=== PATIENT | female | born 1960 | race Caucasian/White ===

== ENCOUNTER 2022-05-30 11:38 | Outpatient (REF) | payer OTHER, SELFPAY ==
[2022-05-30 14:07] LABS: Estimated Average Glucose 186 mg/dL; Hemoglobin A1c % 8.1 %
[2022-05-30 14:32] LABS: Alanine Aminotransferase 19 U/L (0-31); Albumin Level 3.9 g/dL (3.5-5.0); Alkaline Phosphatase 41 U/L (39-117); Aspartate Amino Transferase 18 U/L (5-31); Bilirubin Direct 0.3 mg/dL (0.0-0.5); Blood Urea Nitrogen 12 mg/dL (9-16); Cholesterol 134 mg/dL; Estimated Glomerular Filt Rate > 60; Glucose Random 211 mg/dL (60-115); HDL Cholesterol 35 mg/dL; LDL Cholesterol Calculated 74 mg/dl; Total Protein 6.1 g/dL (6.5-8.0); Triglycerides 125 mg/dL; Vitamin D 25-OH Total 10.5 ng/mL (>30)
[2022-05-30 14:52] LABS: Anion Gap 13 (12-20); Carbon Dioxide 30 mmol/L (22-29); Chloride 103 mmol/L (96-108); Potassium 4.2 mmol/L (3.3-5.1); Sodium 142 mmol/L (135-145)
== END 2022-05-30 11:39 | disposition home or self-care (01) ==
LOC: HO.HMGCLDS 11:38
PROVIDERS: Visit Provider Internal Medicine Cardiovascular Disease
DX: E11.65 Type 2 diabetes mellitus with hyperglycemia (principal); E78.2 Mixed hyperlipidemia; E55.9 Vitamin D deficiency, unspecified; I10 Essential (primary) hypertension
CPT/HCPCS: 36415; 80051; 80061; 80076; 82306; 82310; 82565; 82947; 83036; 84520

== ENCOUNTER 2022-11-11 09:43 | Outpatient (REF) | payer OTHER, SELFPAY ==
[2022-11-11 11:20] LABS: MANUAL DIFF FLAG NO
[2022-11-11 11:34] LABS: Basophils Absolute Auto 0.1 X10*3/uL (0.0-0.2); Basophils Percent Auto 0.8 % (0-2); Eosinophils Absolute Auto 0.2 X10*3/uL (0.0-0.4); Eosinophils Percent Auto 3.1 % (0-4); Hematocrit 45.5 % (37.0-47.0); Hemoglobin 15.1 g/dl (12.0-16.0); Imm Gran Abs Auto 0.05 X10*3/uL (0.00-0.03); Imm Gran Pct Auto 0.8 % (0.0-0.4); Lymphocytes Absolute Auto 2.3 X10*3/uL (1.2-4.9); Lymphocytes Percent Auto 37.1 % (20-40); Mean Corpuscular HGB Conc 33.2 g/dl (31.0-35.0); Mean Corpuscular Hemoglobin 28.1 pg (27.0-33.0); Mean Corpuscular Volume 84.7 fL (80.0-98.0); Mean Platelet Volume 10.7 fL (9.4-12.3); Monocytes Absolute Auto 0.5 X10*3/uL (0.1-1.2); Monocytes Percent Auto 8.1 % (2-11); Neutrophils Percent Auto 50.1 % (45-73); Platelet Count 231 X10*3/uL (160-400); Red Blood Count 5.37 X10*6/uL (4.20-5.50); Red Cell Distribution Width 13.5 % (11.0-16.0); White Blood Count 6.1 X10*3/uL (4.8-10.8)
[2022-11-11 11:58] LABS: Alanine Aminotransferase 16 U/L (0-31); Alkaline Phosphatase 33 U/L (39-117); Anion Gap 12 (12-20); Aspartate Amino Transferase 19 U/L (5-31); Bilirubin Total 1.1 mg/dL (0.0-1.0); Blood Urea Nitrogen 23 mg/dL (9-16); Calcium 9.5 mg/dL (8.4-10.2); Carbon Dioxide 30 mmol/L (22-29); Chloride 103 mmol/L (96-108); Cholesterol 299 mg/dL; Estimated Glomerular Filt Rate > 60; Glucose Random 205 mg/dL (60-115); HDL Cholesterol 37 mg/dL; LDL Cholesterol Calculated 206 mg/dl; Potassium 4.5 mmol/L (3.3-5.1); Sodium 140 mmol/L (135-145); Total Protein 6.5 g/dL (6.5-8.0); Triglycerides 280 mg/dL
[2022-11-11 12:18] LABS: Free T4 (Free Thyroxine) 1.06 ng/dL (0.71-1.85); Thyroid Stimulating Hormone 0.58 uIU/mL (0.32-4.0)
== END 2022-11-11 09:44 | disposition home or self-care (01) ==
LOC: HO.HMGCLDS 09:43
PROVIDERS: PCP Internal Medicine Cardiovascular Disease; Visit Provider Internal Medicine Cardiovascular Disease
DX: I10 Essential (primary) hypertension (principal); E78.2 Mixed hyperlipidemia
CPT/HCPCS: 36415; 80053; 80061; 84439; 84443; 85025

== ENCOUNTER 2023-03-27 13:52 | Outpatient (AMB) | payer OTHER, SELFPAY ==
--- NOTE | 2023-03-27 14:07 | MHC.OFFWIV ---
Intake Vital Signs 03/27/23 14:09 Weight 306 lb BP 110/74 Blood Pressure Location Rt brachial Position Sitting Pulse 82 Pulse Source Pulse Oximeter Pulse Oximetry (%) 94 Oxygen Delivery Method Room Air Intake Visit Reasons: EP Cough 2 weeks (masked) Intake Note: Patient here for cold that has been present for about 2 weeks. she has a cough, vomiting and body soreness. Patient Tobacco Use Status: Never used Tobacco Allergies vitamin c Adverse Reaction (Mild, Uncoded 03/27/23 14:10) sores Do you need a note to return to daycare/school/sports/work: No HPI HPI Comments History of Present Illness Details 62-year-old female who presents for cough x2 weeks. Patient states she has been experiencing cough slightly productive the last 2 weeks. She has tried cough medicine [id number] without much relief she endorses some chills but denies fevers. Chest pain or shortness of breath. Does experience some soreness in the ribs from coughing so much. [facility] Medical History (Updated 03/27/23 @ 14:46 by PERLA Eagle) Cough Social History Patient Tobacco Use Status: Never used Tobacco Review of Systems Const All systems reviewed & are unremarkable except as noted in HPI and below Resp Reports cough Physical Exam Vital Signs: Last Vital Signs Pulse 82 03/27/23 14:09 BP 110/74 03/27/23 14:09 Pulse Ox 94 03/27/23 14:09 Oxygen Delivery Method Room Air 03/27/23 14:09 Const General: cooperative, no acute distress and alert Orientation/consciousness: patient oriented x3 Limitations: no limitations HEENT Head: Yes normal to inspection Ears: hearing grossly normal bilaterally and external ears normal General nose exam: Normal external nose present Eyes General: appearance normal, both eyes and all related structures Neck Neck: Yes normal visual inspection Chest Chest palpation & inspection: normal inspection of the chest Resp Other: Faint expiratory wheeze rate remains Effort & Inspection: normal respiratory effort, able to speak in complete sentences and no audible wheezes Cardio Rate: regular rate Rhythm: regular rhythm GI Inspection: Yes normal to inspection Palpation (GI): Soft to palpation and nontender Skin General skin exam: no rashes or lesions noted Neuro General: patient oriented x3 Psych Appearance: grossly normal Mental Status: mental status grossly normal Speech and movement: Normal speech and movement present Affect: normal affect Attitude: cooperative Thought process: Normal thought process present Thought content: Normal thought content present Assessment & Plan Assessment & Plan (1) Cough: Code(s): R05.9 - Cough, unspecified Qualifiers: Cough type: subacute Qualified Code(s): R05.2 - Subacute cough Plan: VSs. Pain within the right lower base. Unclear etiology of patient's cough at this time. Could be bronchitis versus pneumonia versus other viral illness. For prescribe this symptomatic treatment with albuterol prednisone and Tessalon Perles. We should chest x-ray to rule out pneumonia. Discharge instructions, follow up and treatment are discussed with patient in my usual fashion. Alternatives in treatment are also discussed. The patient will return for worsening symptoms or as needed. Advised that any labs/imaging ordered will be followed up on and contact made if further treatment needed. Counseled that patient's condition may require further evaluation and/or treatment. Symptoms of concern for worsening disorder discussed in detail in my customary manner. Patient does verbalize understanding of the plan, there are no apparent barriers to communication. The patient is given the opportunity to ask questions and have them answered to his/her satisfaction Orders: Orders XR chest 2V Today R05.9 - Cough, unspecified Medications: New benzonatate 100 mg PO BID PRN 10 caps 0RF cough albuterol sulfate 90 mcg/actuation 2 puffs inhalation Q6H PRN 6.7 grams 0RF shortness of breath or wheezing prednisone 40 mg (2 x 20 mg) PO DAILY 3 days 6 tabs 0RF Patient Instructions: You were seen and evaluated for your cold-like symptoms. We cannot say for sure at this time examination is reassuring. We believe is likely suffering from a viral URI. Recommend continued symptomatic treatment using saline rinses Tylenol Motrin as needed. You have been prescribed prednisone, albuterol, and Tessalon Perles. You should return to clinic or the emergency department if you experience any new worsening symptoms such as chest pain, shortness of breath, nausea, vomiting, abdominal pain, or any concerning symptoms I mentioned above. Coding Level of Care Code Est Pt Level 3 (84527) Diagnoses Subacute cough R05.2 Cough type: subacute
[2023-03-27 14:09] VITALS: BP 110/74; PULSE 82; O2SAT 94
== END 2023-03-27 14:48 | disposition home or self-care (01) ==
PROVIDERS: PCP Internal Medicine Cardiovascular Disease; Visit Provider Physician Assistant
DX: R05.2 Subacute cough (principal)
CPT/HCPCS: 99213

== ENCOUNTER 2023-03-27 14:44 | Outpatient (REF) | payer OTHER, SELFPAY ==
--- NOTE | ~2023-03-27 | XR_ITS ---
EXAMINATION: XR CHEST CLINICAL INFORMATION: Cough. COMPARISON: None available. TECHNIQUE: 2 views of the chest were obtained. FINDINGS: The cardiomediastinal silhouette is normal. There is no focal lung consolidation or pleural effusion. The bony structures and soft tissues are unremarkable. XR/XR chest 2V IMPRESSION: No active cardiopulmonary disease.
== END 2023-03-27 14:45 | disposition home or self-care (01) ==
LOC: HO.HMGCX 14:44
PROVIDERS: PCP Internal Medicine Cardiovascular Disease; Visit Provider Physician Assistant
DX: R05.9 Cough, unspecified (principal)
CPT/HCPCS: 71046

== ENCOUNTER 2024-06-03 11:18 | Outpatient (AMB) | payer OTHER, SELFPAY ==
--- NOTE | 2024-06-03 12:42 | MHC.OFFWIV ---
Intake Vital Signs 06/03/24 12:45 Height 5 ft 10 in Weight 280 lb BMI 40.2 BP 132/80 Blood Pressure Location Lt brachial Position Sitting Pulse 83 Pulse Source Pulse Oximeter Pulse Oximetry (%) 98 Oxygen Delivery Method Room Air Intake Visit Reasons: EP Cold symptoms Intake Note: Patient here for raspy cough, bilat ear pain, left eye redness and swelling for about 3-4 days. Patient Tobacco Use Status: Never used Tobacco Allergies vitamin c Adverse Reaction (Mild, Uncoded 06/03/24 12:46) sores HPI EP Cold symptoms HPI Details This note is constructed using voice recognition software. While every effort has been made to ensure accuracy, metal loader errors may have been included. The patient is a 64 year old female who presents to the clinic today with cough, congestion, bilateral ear pain for the past 2-3 days, with left facial redness around her eye for the past 1 day. She notes that her 4-year-old grandson was recently positive for rhino virus, and yesterday was sent from his business objects's to the emergency room where he was admitted to the hospital due to his symptoms. She is unsure who develop symptoms 1st he or herself, however they have both been in close proximity since symptom onset. She notes that the difference between his symptoms and hers is that she has ear pain, and some mild sore throat on the left side, and he had no complaints of that. She denies fever, chills, shortness of breath. She has taken Mucinex which has minimally helped her symptoms as well as ibuprofen which she takes daily for back pain. [facility] Medical History (Updated 03/27/23 @ 14:46 by PERLA Eagle) Cough Social History Patient Tobacco Use Status: Never used Tobacco Review of Systems Const All systems reviewed & are unremarkable except as noted in HPI and below Physical Exam Vital Signs: Last Vital Signs Pulse 83 06/03/24 12:45 BP 132/80 06/03/24 12:45 Pulse Ox 98 06/03/24 12:45 Oxygen Delivery Method Room Air 06/03/24 12:45 BMI result Body Mass Index 40.2 Const General: cooperative, healthy appearing, comfortable and no acute distress Orientation/consciousness: patient oriented x3 Limitations: no limitations HEENT Head: Yes normal to inspection Ears: hearing grossly normal bilaterally, external ears normal, TM normal on the right and TM abnormal (On the left) bulging and erythematous General nose exam: Normal external nose present, Normal nares present and No nasal discharge present Face and sinus: Yes normal facial exam and Yes sinuses nontender Mouth: Normal oral and palatal mucosa present and moist mucous membranes Throat: Yes tonsils normal, Yes uvula midline and Yes posterior oropharynx abnormal (Erythema) Eyes General: appearance normal, both eyes and all related structures Neck Neck: Yes normal visual inspection Resp Effort & Inspection: normal respiratory effort, able to speak in complete sentences, Actively coughing, no respiratory distress, not tachypneic, no tripod positioning and no use of accessory muscles Auscultation: clear to auscultation bilaterally Cardio Jugular venous distension: no JVD Rate: regular rate Rhythm: regular rhythm Heart sounds: S1 normal heart sound present, S2 normal heart sound present, no click, no gallops, no murmurs and no rubs Skin General skin exam: no rashes or lesions noted, elasticity normal and turgor normal Neuro General: patient oriented x3 Extrem General: Yes normal to inspection and Yes no clubbing, cyanosis or edema Assessment & Plan Assessment & Plan (1) Otitis media: Code(s): H66.90 - Otitis media, unspecified, unspecified ear Qualifiers: Otitis media type: suppurative Chronicity: acute Laterality: left Recurrence: non-recurrent Spontaneous tympanic membrane rupture: without spontaneous rupture Qualified Code(s): H66.002 - Acute suppurative otitis media without spontaneous rupture of ear drum, left ear Plan: Supportive measures encouraged and reviewed. Antibiotic sent to requested pharmacy, advised patient to take antibiotics until completed and not to stop if feeling better, unless the patient has side effects. Viral swab obtained to rule out Covid, Influenza, and RSV based on symptoms, however discussed likelihood that she has rhinovirus given exposure to her grandson. Advised mask wearing while symptomatic and quarantine per current CDC guidelines. Reviewed at home support methods including hydration, humidification, vix vapor rub, sinus rinse, and otc treatment options. Advised follow up with worsening symptoms such as dyspnea at rest, which would require emergent evaluation. Plan See above for full details and plan. Orders: Orders SARS-CoV2/FLU/RSV Today J06.9 - Acute upper respiratory infection, unspecified Medications: New amoxicillin-pot clavulanate 875-125 mg 1 tab PO BID 10 days 20 tabs 0RF Coding Level of Care Code Est Pt Level 3 (35579) Diagnoses Non-recurrent acute suppurative otitis media of left ear without spontaneous rupture of tympanic membrane H66.002 Otitis media type: suppurative Chronicity: acute Laterality: left Recurrence: non-recurrent Spontaneous tympanic membrane rupture: without spontaneous rupture
[2024-06-03 12:45] VITALS: BP 132/80; PULSE 83; O2SAT 98; BMI 40.2
--- OUTSIDE RECORDS SUMMARY | 2024-06-09 01:53 | XMS_ITS ---
Author Organization [facility] Address [address] [place] [address] Care Team Providers Care Seismograph Operator Helper Name Role Phone Darrel Hedrick MD Primary Care Provider Unavail anurag Rowland MD, Sally Chavez [phone] REASON FOR VISIT Hearing Loss Encounters Encounter Location Date Provider Diagnosis [facility] [address] [place] [address] 10/09/2023 Sally Rowland Plan Of Treatment Next Appt Details Provider Name:Ly smiley, 09/30/2024 01:30:00 PM, [address], [address] [place] [address], [place], [address], Provider Name:Tess davidson, 09/30/2024 02:00:00 PM, [address], [address] [place] [address], [phone], Progress Notes * Trista MACKhDOB: 1 (64 yo F)Acc No.[id number]:10/09/2023 Progress Note Patient:?Bessy MACK Provider:?Sally Rowland MD :1960???Age:63 Y???Sex:Female D ate:10/09/2023 Address:[address] [place] [address] [phone] Pcp:Darrel Hedrick MD Subjective: * Chief Complaints: * ???1. Hearing Loss. * Medical History:? Objective: * Vitals:? * Physical Examination:? Assessment: Plan: * Treatment: * Images: * Electronic signature of Milena Rowland MD, on 06/09/2024 at 01:53 AM EST Sign off status: Pending * Provider:?Sally Rowland MD Date:?04/2024 Generated for Kyra jordan/Gabi/eTransmitting on:?06/09/2024 01:53 AM EST
--- OUTSIDE RECORDS SUMMARY | 2024-06-09 01:54 | XMS_ITS ---
Author Organization [facility] Address [address] [facility] [address] [place] [address] Care Team Providers Care Social Media Specialist Name Role Phone Darrel Hedrick MD Primary Care Provider Unavail able Janett DIAL, Sally Unavailable [phone] Hesham Mora, M.P.H, Jeana Unavailable Allergies Allergen (clinical drug ingredient) Drug/Non Drug Allergy documented on EMR Reaction Allergy Type Onset Date Status ascorbic acid Vitamin C Unknown Drug Allergy Act marjan REASON FOR VISIT hearing loss Social History Tobacco Use: Social History Observation Description Date Details (start date - stop date) Never Smoker NA - NA Smoking: Question Answer Notes Are you a : Never Smoker Alcohol Screen Question Answer Notes Did you have a drink containing alcohol in the p ast year? No Points 0 Interpretation Negative Vital Signs Blood pressure systolic 120 mm Hg 09/25/19 24 Blood pressure diastolic 70 mm Hg 024 Height 67 in 09/25/2023 Weight 300 lbs 09/25/2023 BMI 46.98 kg/m2 09/25/2023 Encounters Encounter Location Date Provider Diagnosis [facility] [address] [facility] [address] [place] [address] 09/25/2023 Jeana Dahl Sensorineural hearin g loss (SNHL) of left ear with restricted hearing of right ear H90.A22 and Mixed hearing loss of right ear H90.71 Assessments Encounter Date Diagnosis (ICD Code) Assessment Notes Treatment Notes Treatment Clinical Notes Section Notes 09/25/2023 Sensorineural hearing loss (SNHL) of left ear with restricted hearing of right ear (ICD-10 - H90.A22) hearing loss, mostly sensorineural in high frequencies, symmetric. see in 1 year with audio 09/25/2023 Mixed hearing loss of right ear (ICD-10 - H90.71) Plan Of Treatment Treatment Notes Assessment Notes Sensorineural hearing loss ( SNHL) of left ear with restricted hearing of right ear hearing loss, mostly sensorineural in high frequencies, symmetric. see in 1 year with audio Next Appt Details Follow Up: 1Y with audio, Re ason: Provider Name:Ly smiley, 09/30/2024 01:30:00 PM, [address] [facility], [place], [address], Provider Name:Tess davidson, 09/30/2024 02:00:00 PM, [address] [facility], [place], [address], Progress Notes * Trista MACKhDOB: 1 (63 yo F)Acc No.[id number]:09/25/2023 Progress Note Patient:?Bessy MACK Provider:?Jeana Dahl M.D.,M.P.H :1960???Age:63 Y???Sex:Female D ate:09/25/2023 Address:[address] [place] [phone] Pcp:Darrel Hedrick MD Subjective: * Chief Complaints: * ???1. Hearing loss. * HPI: ???General:? This is a 63F seen in consultation from Dr. Hedrick for hearing loss ?Patient noting worsening hearing over the past few years. No tinnitus, vertigo. No noise trauma. Notes difficulty when people whisper or in large room. * Medical History:?Medical His tory Verified. * Surgical History:?Denies Pas t Surgical History. * Hospitalization/Major Diagno stic Procedure:?Denies Past Hospitalization. * Family History:?Father: dece ased.?Mother: .?Siblings: alive.?Children: alive.?2 brother(s) - healthy. 1 son(s) - healthy. .? * Social History:?Smoking?Are you a :?Never Smoker.?Alcohol Screen?Did you have a drink containing alcohol in the past year??No,?Points?0,?Interpretation?Negative.? * Medications:?None * Allergies:?Vitamin C. Objective: * Vitals:?BP:120/70mm Hg, Ht: 67 in, Wt:300lbs, BMI:46.98Index. * Examination: ???General: ?General appearance?NAD, well-nourished, well-developed, normal body habitus.?Eyes?Normal lids, EOM intact, no erythema.?Lungs:?Breathing comfortably on room air.?Skin:?warm and dry, no rashes or lesions, no obvious concerning lesions on the head and neck.?Neurologic exam:?A & O x 3, CN II-XII grossly intact intact.?Voice:?Normal, no stridor.?Ears?hearing adequate for normal conversation, normal external ear bilaterally, normal ear canal bilaterally, TM intact bilaterally without erythema or effusions.?Psych?Cooperative with exam, well groomed, no agitation.?Musculoskeletal Neck full range of motion.?Neck:?Soft, supple, no cervical adenopathy, no thyroid masses, trachea midline.?Head and Face:?Normal facial features.? * Physical Examination:?AUDIOLOGY:?Wind Farm Operations Manager:?Audio/tymps completed. Ly Saeed M.A., [facility] .? Assessment: * Assessment: 1.?Sensorineural hearing los s (SNHL) of left ear with restricted hearing of right ear - H90.A22 (Primary)?2.?Mixed hearing loss of right ear - H90.71? Plan: * Treatment: * Procedure Codes:?04763 AUDIO -Comprehensive, 36341 Tympanometry, G9903 Pt scrn tbco id as non user * Follow Up:?1Y with audio * Images: * Sign off status: Completed true * Provider:?Jeana Dahl M.D.,M.P.H Date:?0 09/25/2023 Generated for Printi ng/Fastephanieg/eTransmitting on:?06/09/2024 01:53 AM EST History and Physical Notes * HPI (History of Present Illness) Category Sub-Category Detail Notes Category Not es General This is a 63F seen in consultation from Dr. Hedrick for hearing loss Patient noting worsening hearing over the past few years. No tinnitus, vertigo. No noise trauma. Notes difficulty when people whisper or in large room. Physical Examination Category Sub-Category Detail Notes Section Note s AUDIOLOGY Wind Farm Operations Manager: Audio/tymps comp leted. Ly Saeed M.A., [facility] Examination Category Sub-Category Detail Notes Category Not es General Lungs: Breathing comfortably on jamee m air General appearance NAD, well-nourished, well-developed, normal body habitus Skin: warm and dry, no cristal hes or lesions, no obvious concerning lesions on the head and neck Neurologic exam: A & O x 3, CN II-XII grossly intact intact Voice: Normal, no stridor Ears hearing adequate for normal conversation, normal external ear bilaterally, normal ear canal bilaterally, TM intact bilaterally without erythema or effusions Neck: Soft, supple, no cer vical adenopathy, no thyroid masses, trachea midline Head and Face: Normal facial featur es Eyes Normal lids, EOM int act, no erythema Psych Cooperative with exa m, well groomed, no agitation Musculoskeletal Neck full range of m otion
--- OUTSIDE RECORDS SUMMARY | 2024-06-09 01:54 | XMS_ITS ---
Author Organization [facility] Address [address] [place] [address] Care Team Providers Care Dog Food Dough Mixer Name Role Phone Darrel Hedrick MD Primary Care Provider Unavail able Janett DIAL, Sally Unavailable [phone] Qian West Unavailable REASON FOR VISIT Hearing Loss Encounters Encounter Location Date Provider Diagnosis [facility] [address] [place] [address] 10/09/2023 Qian Anthony Plan Of Treatment Next Appt Details Provider Name:Ly smiley, 09/30/2024 01:30:00 PM, [address], [address] [place] [address], [phone], Provider Name:Tess davidson, 09/30/2024 02:00:00 PM, [address], [address] [facility], [place], [address], Progress Notes * Trista MACKhDOB: (64 yo F)Acc No.[id number]:10/09/2023 Patient:?Enma MACKorah Provider:?STERLING Luu, CC -A :1960???Age:63 Y???Sex:Female D ate:10/09/2023 Address:[facility] [place], [phone] Pcp:Darrel Hedrick MD Subjective: * Chief Complaints: * ???1. Hearing Loss. * Medical History:? Objective: * Vitals:? * Physical Examination:? Assessment: Plan: * Treatment: * Images: * Electronic signature of Sterling Alan CCC-A on 06/09/2024 at 01:53 AM EST Sign off status: Pending * Provider:?STRELING Luu CC -A Date:?10/09/2023 Generated for Printing/Faxing/eTransmitting on:?06/09/2024 01:53 AM EST
--- OUTSIDE RECORDS SUMMARY | 2024-06-09 01:54 | XMS_ITS | Patient Health Record ---
Author Organization [facility] Address [address] [place] [address] Care Team Providers Care Mechanical Equipment Test Engineer Name Role Phone Ryley DIAL, Darrel Primary Care Provider Unavail able Janett DIAL, Sally Unavailable [phone] Ly Saeed Unavailable [phone] Hesham Mora, M.P.HJeana Unavailable Qian West Unavailable Allergies Allergen (clinical drug ingredient) Drug/Non Drug Allergy documented on EMR Reaction Allergy Type Onset Date Status ascorbic acid Vitamin C Unknown Drug Allergy Act marjan Reason For Referral No Information Social History Tobacco Use: Social History Observation Description Date Details (start date - stop date) Never Smoker NA - NA Smoking: Question Answer Notes Are you a : Never Smoker Alcohol Screen Question Answer Notes Did you have a drink containing alcohol in the p ast year? No Points 0 Interpretation Negative Problems Problem Type SNOMED Code ICD Code Onset Dates Problem Status W/U Status Risk Notes Problem Mixed conductive and sensorineural hearing loss of right ear (82280459936182) Mixed hearing loss of right ear (H90.71) Active confirmed Problem Sensorineural hearing loss of left ear (disorder) (9747856952) Sensorineural hearing loss (SNHL) of left ear with restricted hearing of right ear (H90.A22) Active confirmed Vital Signs Blood pressure diastolic 70 mm Hg 09/25/2023 Height 67 in 09/25/2023 Blood pressure systolic 120 mm Hg 09/25/2023 Weight 300 lbs 09/25/2023 BMI 46.98 kg/m2 09/25/2023 Encounters Encounter Location Date Provider Diagnosis [facility] [address] [place] [phone] 09/25/2023 Ly Saeed Mixed hearing loss o f right ear H90.71 and Sensorineural hearing loss (SNHL) of left ear with restricted hearing of right ear H90.A22 [facility] [address] [place] [phone] 09/25/2023 Jeana Du Sensorineural hearin g loss (SNHL) of left ear with restricted hearing of right ear H90.A22 and Mixed hearing loss of right ear H90.71 [facility] [address] [place] [phone] 09/25/2023 Darrel Hedrick Assessments Encounter Date Diagnosis (ICD Code) Assessment Notes Treatment Notes Treatment Clinical Notes Section Notes 09/25/2023 Mixed hearing loss of right ear (ICD-10 - H90.71) 09/25/2023 Sensorineural hearing loss (SNHL) of left ear with restricted hearing of right ear (ICD-10 - H90.A22) 09/25/2023 Mixed hearing loss of right ear (ICD-10 - H90.71) 09/25/2023 Sensorineural hearing loss (SNHL) of left ear with restricted hearing of right ear (ICD-10 - H90.A22) hearing loss, mostly sensorineural in high frequencies, symmetric. see in 1 year with audio Plan Of Treatment Next Appt Details Provider Name:Ly smiley, 09/30/2024 01:30:00 PM, [address], [address] [place] [address], [phone], Provider Name:Tess davidson, 09/30/2024 02:00:00 PM, [address], [address] [place] [address], [phone], Insurance Providers Payer Name Payer Address Payer Phone Subscriber Number Group Number Insured Name Patient Relationship to Insured Coverage Start Date Coverage End Date [facility] Medicare Complete [address] [address] [place] [address] [id number] Bessy Mack Self - patient is the insured
== END 2024-06-03 13:34 | disposition home or self-care (01) ==
PROVIDERS: PCP Internal Medicine Cardiovascular Disease; Visit Provider Registered Nurse
DX: H66.002 Acute suppurative otitis media without spontaneous rupture of ear drum, left ear (principal)

== ENCOUNTER 2024-06-03 11:18 | Outpatient (REF) | payer OTHER, SELFPAY ==
[2024-06-03 18:01] LABS: Influenza A PCR NEGATIVE (Negative); Influenza B PCR NEGATIVE (Negative); Resp Syncy Virus RNA Qual PCR NEGATIVE (Negative); SARS COV2 PCR INHOUSE NEGATIVE (Negative)
== END 2024-06-03 11:19 | disposition home or self-care (01) ==
LOC: HO.LAB 11:18
PROVIDERS: Registered Nurse; PCP Internal Medicine Cardiovascular Disease; Visit Provider Physician Assistant
DX: J06.9 Acute upper respiratory infection, unspecified (principal)
CPT/HCPCS: 0241U